=== PATIENT | male | born 1970 | race Caucasian/White ===

== ENCOUNTER 2024-01-29 13:51 | Emergency (ER) | payer SELFPAY ==
[2024-01-29 15:33] LABS: #Neutrophils 15.1 thou/uL (1.40-6.50); %Basophils 0.1 % (0.0-1.0); %Eosinophils 0.1 % (0.0-10.0); %Lymphocytes 3.8 % (21.0-51.0); %Monocytes 6.1 % (0.0-10.0); %Neutrophils 89.2 % (42.0-75.0); Hematocrit 31.8 % (42.0-52.0); Hemoglobin 10.5 g/dL (14.0-18.0); Mean Corpuscular Hemoglobin 30.2 pg (27.0-31.0); Mean Corpuscular Volume 91.4 fl (78.0-98.0); Mean Platelet Volume 9.9 fL (7.4-10.4); Platelet Count 426 10x3/uL (130-400); RBC Distribution Width 13.4 % (11.5-14.5); Red Blood Cell (RBC) Count 3.48 mill/uL (4.70-6.10)
[2024-01-29 15:50] LABS: INR-International Normal Ratio 1.1
[2024-01-29 15:51] LABS: PTT 33.2 sec (22.9-36.1)
[2024-01-29 16:29] LABS: Albumin 2.8 g/dL (3.5-5.0)
[2024-01-29 16:30] LABS: Chloride 98 mmol/L (98-107); Potassium 4.3 mmol/L (3.5-5.1); Sodium 127 mmol/L (136-145)
[2024-01-29 16:31] LABS: Calcium 8.7 mg/dL (7.8-10.44); Glucose 128 mg/dL (70-105)
[2024-01-29 16:32] LABS: Globulin 2.5 g/dL (2.4-3.5); Protein, Total 5.3 g/dL (6.0-8.3)
[2024-01-29 16:33] LABS: Anion Gap 10 mmol/L (10-20); Bilirubin, Total 1.2 mg/dL (0.2-1.2); Carbon Dioxide 23 mmol/L (22-29)
[2024-01-29 16:34] LABS: Alkaline Phosphatase 79 U/L (40-110)
[2024-01-29 16:35] LABS: Calc. Creatinine Clearance 0 mL/min (70-130); Estimated GFR 112
[2024-01-29 16:36] LABS: BUN (Urea Nitrogen) 14 mg/dL (8.4-25.7)
[2024-01-29 16:37] LABS: ALT (SGPT) 9 U/L (8-55); AST (SGOT) 20 U/L (5-34); Magnesium 1.6 mg/dL (1.6-2.6)
[2024-01-29 16:38] LABS: Lipase 452 U/L (8-78)
[2024-01-29 16:55] LABS: Bacteria/HPF None Seen HPF (None Seen); Bilirubin Negative (Negative); Blood, Urine Negative (Negative); CAUTI Indications for Culture Pelvic or flank pain; Clarity Clear (Clear); Glucose, Urine (Dipstick) Normal (Negative); Ketone, Urine 10 mg/dL (Negative); Leukocyte Negative Leu/uL (Negative); Nitrite Negative (Negative); Protein, Urine (Dipstick) 30 mg/dL (Neg-Trace); RBC/HPF 0-3 HPF (0-3); Squamous Epithelial 0-3 HPF (0-3); Urobilinogen 3 mg/dL (Less than 2); WBC/HPF 0-3 HPF (0-3)
[2024-01-29 16:59] LABS: Specific Gravity, Urine Greater than 1.060 (1.002-1.036)
[2024-01-29 17:01] LABS: Urine Culture Reflex No No
[2024-01-29] MEDS ORDERED: Morphine 4 MG/ML VIAL ONE (17:28)
[2024-01-29] MEDS ORDERED: Acetaminophen 500 MG TAB ONE (20:45)
== END 2024-01-29 20:51 | disposition short-term general hospital (02) ==
LOC: ERS 13:51
DX: K85.90 Acute pancreatitis without necrosis or infection, unspecified (principal); R18.8 Other ascites; K86.3 Pseudocyst of pancreas; Z87.891 Personal history of nicotine dependence
CPT/HCPCS: 36415; 71045; 74177; 80053; 81001; 83605; 83690; 83735; 85025; 85610; 85730; 87040; 93005; 96374; J2270